=== PATIENT | male | born 1960 | race Caucasian/White ===

== ENCOUNTER 2017-10-15 10:09 | Emergency (ER) | payer OTHER ==
[2017-10-15 10:34] VITALS: BP 107/77
--- NOTE | 2017-10-15 11:29 | RAD ---
Indication: Abdominal pain, history of kidney stones. CT of the abdomen and pelvis was performed without oral or IV contrast administration. Coronal and sagittal reconstructed images were obtained. Comparison is made with previous exam dated February 03, 2004. There is marked right hydronephrosis noted. Dilated proximal ureter is noted off to the level of L5. There is a calculus in the ureter measuring 7 mm x 4 mm. The left kidney demonstrates multiple calculi in the calyces of left kidney without evidence of hydronephrosis. The lung bases demonstrate no pleural fluid, nodules or masses. Heart is of normal size without evidence of pericardial effusion. The liver is normal in size. No focal lesions or intrahepatic ductal dilatation is noted. The gallbladder demonstrates no calcified gallstones. The spleen is normal in size. The pancreas demonstrates no mass or pancreatic ductal dilatation. No adrenal lesions are noted. No retroperitoneal lymphadenopathy is noted. No dilated loops of bowel are noted. The colon is filled with stool. Diverticulosis without definite evidence of diverticulitis is noted. The urinary bladder is otherwise unremarkable. IMPRESSION: Right hydronephrosis with hydroureter up to the level of L5 with a 7 x 4 mm calculus at this level.
--- NOTE | 2017-10-15 11:47 | UC ---
Abdominal Pain Male HPI - HPI Summary HPI Summary: right lower abdominal pain x 3 days , pain is 8 out of 10 , radiating to his right groin no fever, no chills hx of frequent kidney stones + dysuria - History of Current Complaint Chief Complaint: UCGU Stated Complaint: URINARY COMP Time Seen by Provider: 10/15/17 10:24 Hx Obtained From: Patient Onset/Duration: Gradual Onset, Lasting Days - 2, Still Present Timing: Constant Severity Initially: Moderate Severity Currently: Moderate Pain Intensity: 6 Location: Discrete At: RLQ Radiates: Yes Radiates to: Inguinal Character: Colicy, Sharp, Tearing Aggravating Factor(s): Nothing Alleviating Factor(s): Nothing Associated Signs And Symptoms: Negative: Diaphoresis, Fever, Cough, Chest Pain, Dizzy, Back Pain, Constipation, Blood in Stool, Urinary Symptoms, Decreased Appetite, Nausea, Vomiting, Diarrhea, Penile Discharge - Allergies/Home Medications Allergies/Adverse Reactions: Allergies Allergy/AdvReac Type Severity Reaction Status Date / Time No Known Allergies Allergy Unverified 10/15/17 10:35 Home Medications: Home Medications NK [No Home Medications Reported] 10/15/17 [History Confirmed 10/15/17] PMH/Surg Hx/FS Hx/Imm Hx GI/ History: Kidney Stones - Surgical History Surgical History: Yes Surgery Procedure, Year, and Place: kidney stones lithotripsies x 8 - Family History Known Family History: Negative: Blood Disorder - Social History Alcohol Use: Occasionally Substance Use Type: None Smoking Status (MU): Never Smoked Tobacco Review of Systems Constitutional: Negative Skin: Negative Eyes: Negative ENT: Negative Respiratory: Negative Cardiovascular: Negative Gastrointestinal: Abdominal Pain Genitourinary: Dysuria Is Patient Immunocompromised?: No All Other Systems Reviewed And Are Negative: Yes Physical Exam Triage Information Reviewed: Yes Appearance: Well-Appearing, No Pain Distress, Well-Nourished Vital Signs: Initial Vital Signs Temp 99.2 F 10/15/17 10:23 Pulse 70 10/15/17 10:23 Resp 12 10/15/17 10:23 BP 107/77 10/15/17 10:23 Pulse Ox 97 10/15/17 10:23 Vital Signs Reviewed: Yes Eye Exam: Normal Eyes: Positive: Conjunctiva Clear ENT: Positive: Normal ENT inspection, Hearing grossly normal, Pharynx normal Neck exam: Normal Neck: Positive: Supple, Nontender, No Lymphadenopathy Respiratory: Positive: Chest non-tender, Lungs clear, Normal breath sounds Cardiovascular: Positive: RRR, No Murmur, Pulses Normal Abdomen Description: Positive: Nontender, Soft. Negative: CVA Tenderness (R), CVA Tenderness (L), Distended, Guarding Bowel Sounds: Positive: Present Skin Exam: Normal Diagnostics - Laboratory Diagnostic Studies Completed/Ordered: CT abdomin and pelvic IMPRESSION: Right hydronephrosis with hydroureter up to the level of L5 with a 7 x 4 mm. calculus at this level. Abd Pain Male Course/Dx - Differential Dx/Clinical Impression Provider Diagnoses: renal colic. hydronephrosis right side Discharge - Sign-Out/Discharge Documenting (check all that apply): Discharge/Admit/Transfer - Discharge Plan Condition: Stable Disposition: TRANS [facility] Patient Education Materials: Kidney Stones (ED), Hydronephrosis (ED) Referrals: No Primary Care Phys,NOPCP [Primary Care Provider] - Additional Instructions: please go to [facility] ED for eval and tx - Billing Disposition and Condition Condition: STABLE Disposition: EMTALA
== END 2017-10-15 11:42 | disposition short-term general hospital (02) ==
LOC: UCCORT 10:09
DX: N23 Unspecified renal colic (principal); N13.30 Unspecified hydronephrosis; Z87.442 Personal history of urinary calculi
CPT/HCPCS: 74176; 81003; 99212; G0463

== ENCOUNTER 2018-02-04 08:01 | Emergency (ER) | payer OTHER ==
[2018-02-04 08:19] VITALS: BP 118/74
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
== END 2018-02-04 09:11 | disposition home or self-care (01) ==
LOC: UCCORT 08:01
DX: S40.011A Contusion of right shoulder, initial encounter (principal); Y04.2XXA Assault by strike against or bumped into by another person, initial encounter; Y93.55 Activity, bike riding; Y92.9 Unspecified place or not applicable; M95.8 Other specified acquired deformities of musculoskeletal system
CPT/HCPCS: 99211; G0463